=== PATIENT | male | born 1965 | race African-American/Black ===

== ENCOUNTER 2019-07-11 14:31 | Emergency (ER) | payer SELFPAY ==
--- OUTSIDE RECORDS SUMMARY | 2019-07-11 14:33 | XMS REPORT ---
:1965 [facility] Address [address] [place] [address] Dr. Delgado [address] [place] [id number] Care Team Providers Name Role Phone Unavailable Unavailable Unavailable Problems This patient has no known problems. Allergies, Adverse Reactions, Alerts This patient has no known allergies or adverse reactions. Medications This patient has no known medications.
[2019-07-11] MEDS ORDERED: NA CHLORIDE 0.9% 1,000 ML ONE (14:36)
[2019-07-11] MEDS ORDERED: CEFAZOLIN/SWI 1gm 1 GM/10 ML SYR ONE (14:36)
[2019-07-11] MEDS ORDERED: TETANUS & DIPHTHERIA TOX,ADULT 0.5 ML VIAL ONE (14:36)
[2019-07-11] MEDS ORDERED: PROMETHAZINE INJ 25 MG/ML AMP ONE (14:43)
[2019-07-11] MEDS ORDERED: MORPHINE 4 MG/ML SYR ONE ×2 (14:44→16:06)
--- NOTE | 2019-07-11 15:20 | RAD REPORT ---
EXAM DESCRIPTION: Yissel Single View07/11/2019 3:08 pm CLINICAL HISTORY: Chest pain COMPARISON: 2018 FINDINGS: The lungs appear clear of acute infiltrate. The heart is normal size IMPRESSION: No acute abnormalities displayed
--- NOTE | 2019-07-11 15:20 | RAD REPORT ---
EXAM DESCRIPTION: RAD -Hand Left 3 View - 07/11/2019 3:08 pm CLINICAL HISTORY: Left hand injury FINDINGS: Comminuted markedly displaced fracture involves the distal aspect of the second proximal p halanx extending intraarticularly. No gross dislocation noted
[2019-07-11 18:15] VITALS: TEMP 98.4
[2019-07-11 18:18] VITALS: O2SAT 100
[2019-07-11 18:20] VITALS: BP 161/105
== END 2019-07-11 16:37 | disposition short-term general hospital (02) ==
LOC: ER 14:31
DX: S62.611A Displaced fracture of proximal phalanx of left index finger, initial encounter for closed fracture (principal); W34.00XA Accidental discharge from unspecified firearms or gun, initial encounter; Y93.89 Activity, other specified; Y92.9 Unspecified place or not applicable; F17.210 Nicotine dependence, cigarettes, uncomplicated
CPT/HCPCS: 71045; 90471; 90714; 96361; 96374; 96375; 99285; J0690; J2550; J7030